=== PATIENT | male | born 1975 | race Caucasian/White ===

== ENCOUNTER 2024-11-13 20:42 | Emergency (ER) | payer OTHER, SELFPAY ==
[2024-11-13 20:42] VITALS: BMI 25.0
[2024-11-13 21:25] VITALS: BP 147/85; PULSE 83; RESP 24; TEMP 39.1; O2SAT 93
--- NOTE | 2024-11-13 21:37 | XR_ITS ---
Examination: PA chest single view TECHNIQUE: Upright PA chest single view Standing time: November 13, 2024 2146 hours INDICATIONS: Coughing chest pain today. FINDINGS: Pneumonia and atelectasis right base Mild prominence left ventricle No pulmonary edema Intact osseous structures IMPRESSION: Atelectasis and pneumonia right base
--- NOTE | 2024-11-13 21:37 | EKG_ITS ---
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1975 Requested By: Patrick Page Order Number: [id number] Reading MD: Patrick Page Measurements Intervals [place] Rate: 87 P: 70 IN: 140 QRS: 33 QRSD: 100 T: 41 QT: 338 QTc: 407 Interpretive Statements SINUS RHYTHM POSSIBLE LEFT ATRIAL ENLARGEMENT [-0.1mV P WAVE IN V1/V2] INCOMPLETE RIGHT BUNDLE BRANCH BLOCK [90+ ms QRS DURATION, TERMINAL R IN V1/V2, 40+ ms S IN I/aVL/V4/V5/V6] SEPTAL MYOCARDIAL INFARCTION , OF INDETERMINATE AGE [40+ ms Q WAVE IN V1/V2] Compared to ECG 03/21/2022 11:02:00 Incomplete right bundle-branch block now present Myocardial infarct finding now present /store/S0/[id number]/ecg/[id number].pdf
--- NOTE | 2024-11-13 21:38 | PD.EDRME ---
Rapid Medical Screening Exam [facility] Arrival date/time: 11/13/24 20:42 49M with no significant PMH presents to ED with 5 days of worsening cough, CP, and SOB. Patient tested positive for the flu and was put on Tamiflu. Patient was also given Augmentin by PCP. Chief Complaint: Flu Like Symptoms Time Seen by Provider: 11/14/24 00:39 Vital signs: Vital Signs Temperature 102.3 F H 11/13/24 21:25 Pulse Rate 83 11/13/24 21:25 Respiratory Rate 24 H 11/13/24 21:25 Blood Pressure 147/85 H 11/13/24 21:25 Pulse Oximetry (%) 93 L 11/13/24 21:25 Oxygen Delivery Method Room Air 11/13/24 21:25
[2024-11-13 21:59] LABS: Lactate (Lactic Acid) 1.3 mMol/L (0.4-2.0)
[2024-11-13 22:00] LABS: Basophils % (Auto) 0 % (0-2.5); Eosinophils % (Auto) 0 % (0-10); Hemoglobin 14.3 g/dL (13.5-16.0); Immature Granulocytes % (Auto) 1 % (0-0); Immature Granulocytes Auto 0.05 Thou/mm3 (0.00-0.00); Lymphocytes # (Auto) 0.7 Thou/mm3 (1.0-4.8); Lymphocytes % (Auto) 10 % (10-50); Mean Corpuscular HGB Conc 37.6 g/dl (31.0-37.0); Mean Corpuscular Hemoglobin 31.2 pg (25.0-35.0); Mean Corpuscular Volume 83 fL (80-100); Monocytes # (Auto) 0.6 Thou/mm3 (0.0-0.8); Monocytes % (Auto) 9 % (0-12); Neutrophils # (Auto) 5.4 Thou/mm3 (1.8-7.7); Neutrophils % (Auto) 79 % (37-80); Nucleated Red Blood Cell % 0 /100 WBC (0); Platelet Count 198 Thou/mm3 (140-440); RDW Standard Deviation 35.5 fL (35.1-43.9); Red Blood Count 4.58 Miln/mm3 (4.50-5.90); White Blood Count 6.8 Thou/mm3 (3.8-10.6)
[2024-11-13 22:18] LABS: B-Type Natriuretic Peptide < 20 pg/mL (0-100)
[2024-11-13 22:22] VITALS: TEMP 39.4
[2024-11-13] MEDS: IBUPROFEN TAB 400 MG TABLET 800 MG PO (22:22)
[2024-11-13 22:23] VITALS: TEMP 39.4
[2024-11-13] MEDS: ACETAMINOPHEN 500 MG TABLET 1000 MG PO (22:23)
[2024-11-13 22:26] LABS: Alanine Aminotransferase 47 U/L (10-49); Albumin, Serum 4.5 gm/dL (3.5-5.0); Albumin/Globulin Ratio 1.5 (1.2-2.2); Alkaline Phosphatase 61 U/L (46-116); Anion Gap 7 (7-16); Aspartate Amino Transferase 53 U/L (0-34); BUN/Creatinine Ratio 9 Ratio (12-20); Bilirubin,Total 0.7 mg/dL (0.3-1.2); Blood Urea Nitrogen 8 mg/dL (9-23); Calcium 8.4 mg/dL (8.3-10.6); Calcium (Corrected) 8.4 mg/dL (8.5-10.1); Carbon Dioxide 29.8 mMol/L (20.0-31.0); Chloride 90 mMol/L (98-107); Creatinine (Component) 0.9 mg/dL (0.6-1.3); Globulin 3.1 gm/dL (2.3-3.5); Glucose 118 mg/dL (74-106); Osmolality,Calculated 254 (275-295); Potassium 3.8 mMol/L (3.4-5.1); Procalcitonin 0.13 ng/ml (0.0-0.49); Sodium 127 mMol/L (136-145); Total Protein 7.6 gm/dL (5.7-8.2); Troponin I < 0.020 ng/mL (0.0-0.045); eGFR > 60 See Note
[2024-11-13 22:48] VITALS: PULSE 94; RESP 20; O2SAT 96
[2024-11-13] MEDS: ALBUTEROL/IPRATROPIUM (Duoneb) RT SOL 3 ML NEBU 6 ML INH (22:48)
[2024-11-13 23:20] VITALS: TEMP 36.8
--- NOTE | 2024-11-14 00:40 | PD.EDURI ---
Upper Respiratory Inf. RME/HPI General Chief Complaint: Flu Like Symptoms Stated Complaint: FLU + Time Seen by Provider: 11/14/24 00:39 Arrival date/time: 11/13/24 20:42 49M with history of seizures presents to ED with 1 week of worsening cough, CP, and SOB. Patient tested positive for the flu at the clinic and was put on Tamiflu. Patient was also given Augmentin by PCP. Limitations: no limitations RME / HPI RME / HPI Narrative: 11/13/24 20:42 Related Data Home Medications ?Medication ?Instructions ?Recorded ?Confirmed carbamazepine 200 mg 200 mg PO BID ##0 10/13/12 03/22/22 tablet,extended release,12 hr (Tegretol XR) multivitamin 1 tab PO QDAY 11/24/19 03/22/22 Prework Out And Creatine 03/21/22 Previous Rx's ?Medication ?Instructions ?Recorded cephalexin 500 mg capsule 500 mg PO BID #14 caps 03/22/22 hydrocodone 5 mg-acetaminophen 325 1 tab PO Q6H PRN pain #40 tabs 03/22/22 mg tablet albuterol sulfate 90 mcg/actuation 2 puff inhalation Q6H PRN 11/14/24 aerosol inhaler (Ventolin HFA) shortness of breath or wheezing #8.5 grams doxycycline hyclate 100 mg tablet 100 mg PO BID 5 days #10 tabs 11/14/24 Allergies Allergy/AdvReac Type Severity Reaction Status Date / Time corn Allergy Intermediate Anaphylaxis Verified 03/22/22 13:57 erythromycin base Allergy unknown - Verified 03/22/22 13:32 as a child Review of Systems Review of Systems Systems Reviewed: All systems reviewed, normal except as documented Constitutional Constitutional: Reports system reviewed and no additional complaints, except as documented, Denies fever(s) and Denies headache(s) ENT Ears, Nose, Mouth, and Throat: Denies disequilibrium and Denies headache(s) Cardiovascular Cardiovascular: Reports system reviewed and no additional complaints, except as documented, Reports as per HPI, Reports chest pain and Reports dyspnea Respiratory Respiratory: Reports system reviewed and no additional complaints, except as documented, Reports as per HPI, Reports cough and Reports dyspnea Gastrointestinal Gastrointestinal: Reports system reviewed and no additional complaints, except as documented, Denies abdominal pain, Denies nausea and Denies vomiting Neurologic Neurologic: Reports system reviewed and no additional complaints, except as documented, Denies confusion, Denies disequilibrium and Denies headache(s) Psychiatric Psychiatric: Denies confusion Past Medical History Past Medical History NEUROLOGIC: Positive Neurological Disorders, Seizures, Epilepsy and Guillain-Briggs Syndrome (2012) CARDIAC: Negative Cardiac Disorders or Congestive Heart Failure RESPIRATORY: Negative Chronic Obstructive Pulmonary Disease (COPD) GASTROINTESTINAL: Positive Gastrointestinal Disorders and Gall Bladder Disease (sludge) GENITOURINARY: Negative Genitourinary Disorders or Renal Disease MUSCULOSKELETAL: Positive Musculoskeletal Disorders ENDOCRINE: Negative Endocrine Disorders, Diabetes Mellitus Type 1, Diabetes Mellitus Type 2 or Hyperthyroidism HEMATOLOGIC: Negative Blood Disorders OTHER HISTORY: Positive Hospitalization (gal bladder and valley fever, seizure at 13) and Chicken Pox; Negative Autoimmune Disease, Shingles, Falls, Blood Transfusions, Blood Transfusion Reaction, Anesthesia Reactions or Cancer Family History FAMILY HISTORY: Positive Family Cancer (paternal grandfather colon, dad liver cancer); Negative Family Respiratory Disorders, Family Cardiac Disorders or Family Gastrointestinal Problems Social History SMOKING STATUS: Never smoker ED Exam General Limitations: Present no limitations General appearance: Present alert and in no apparent distress Head Head exam: Present atraumatic Eye Eye exam: Present normal appearance, PERRL and EOMI ENT ENT exam: Present normal exam, normal oropharynx and mucous membranes moist Neck Neck exam: Present normal inspection, full ROM and trachea midline Chest Chest inspection: Present normal inspection and symmetric chest wall rise Respiratory Respiratory exam: Present normal lung sounds bilaterally Cardiovascular Cardiovascular exam: Present regular rate, normal rhythm and normal heart sounds Abdominal Exam Abdominal exam: Present soft and normal bowel sounds Extremities Exam Extremities exam: Present normal inspection and full ROM Back Exam Back exam: Present normal inspection and full ROM Neurological Exam Neurological exam: Present alert, oriented X3 and CN II-XII intact Psychiatric Psychiatric exam: Present normal affect and normal mood Skin Skin exam: Present warm, dry, intact and normal color Course Quality Measures none Orders Category Date Time Status Bedside COVID-19 Antigen Test NOW Care 11/14/24 00:42 Active Bedside Influenza A&B Antigen Test NOW Care 11/14/24 00:42 Completed EKG (ED ONLY) *Do not use* NOW Care 11/13/24 21:37 Completed Insert IV NOW Care 11/14/24 00:41 Active EKG (ED Only) Stat Exams 11/13/24 21:37 Draft XR chest 1V portable Stat Exams 11/13/24 21:37 Completed B-Type Natriuretic Peptide Stat Lab 11/13/24 21:52 Completed CBC Stat Lab 11/13/24 21:52 Completed Comprehensive Metabolic Panel Stat Lab 11/13/24 21:52 Completed D-Dimer Stat Lab 11/14/24 00:41 Completed Drug Screen,Urine Stat Lab 11/14/24 04:42 Received Lactate (Lactic Acid) Stat Lab 11/13/24 21:52 Completed Procalcitonin Stat Lab 11/13/24 21:52 Completed Troponin I Stat Lab 11/13/24 21:52 Completed Urinalysis, C/S if Indicated Stat Lab 11/14/24 04:42 Completed Acetaminophen Tab [Tylenol ES Tab] Med 11/13/24 21:37 Discontinued 1,000 mg PO X1 ONE Albuterol/Ipratr Rt Renay [Duoneb Rt Renay] Med 11/13/24 21:37 Discontinued 6 ml INH X1 ONE Dexamethasone Inj [Decadron Inj] Med 11/14/24 01:51 Discontinued 10 mg IV X1 ONE Doxycycline Inj [Vibramycin Inj] 200 mg Med 11/14/24 01:53 Discontinued Sodium Chloride 0.9% 250 ml [Ns] 250 ml IV X1 Ibuprofen Tab [Motrin Tab] Med 11/13/24 21:37 Discontinued 800 mg PO X1 ONE Ondansetron Inj [Zofran Inj] Med 11/14/24 03:31 Discontinued 4 mg IV X1 ONE Sodium Chloride 0.9% 1000 ml [Ns] 1,000 ml Med 11/14/24 01:53 Discontinued IV 500 mls/hr Sodium Chloride 0.9% 1000 ml [Ns] 1,000 ml Med 11/14/24 00:41 Discontinued IV 999 mls/hr cefTRIAXone/D5w 1gm IV premix [Rocephin/D5w 1gm IV Med 11/14/24 01:51 Discontinued premix] 50 ml IV X1 Oxygen Delivery NOW RT 11/13/24 21:37 Active Vital Signs Vital signs: Vital Signs Temperature 102.3 F H 11/13/24 21:25 Pulse Rate 83 11/13/24 21:25 Respiratory Rate 24 H 11/13/24 21:25 Blood Pressure 147/85 H 11/13/24 21:25 Pulse Oximetry (%) 93 L 11/13/24 21:25 Oxygen Delivery Method Room Air 11/13/24 21:25 O2 at 93% on RA Upper Respiratory Infection MDM Narrative MDM Narrative:: 49M with history of seizures presents to ED with 1 week of worsening cough, CP, and SOB. Patient tested positive for the flu at the clinic and was put on Tamiflu. Patient was also given Augmentin by PCP. Physical exam reveals clear ENT and lungs. Increased WOB. Patient is febrile, but does not appear toxic. EKG is NSR. No leukocytosis. Moderately low sodium of 127 likely due to poor intake/hypovolemia (as patient could not make urine until 2 L NS and has had poor intake in the past few days) vs pulmonary disease vs carbamazepine side effect. Procal/lactate normal. CXR R base PNA and atelectasis. Trop/BNP normal. D-dimer normal. UA shows some dehydration. Significant improvement with IVF, ABX, breathing tx, and steroids. Will add doxycycline to Augmentin for atypical coverage. Patient data External records reviewed:: [facility] previous records Clinical information provided by:: patient Social determinants that could affect healthcare access:: none Patient has the following chronic illnesses:: seizures How is presenting disease/condition affected by chronic disease/condition?: uneffected by Evaluation data The following diagnostics were reviewed and interpreted by me:: lab results, radiology exam(s) and EKG tracing(s) Lab and/or radiology exams considered but not ordered:: ordered Interpretation Summary: above Medications / Prescriptions Medications or Prescriptions considered but not ordered:: ordered Medication administrations:: Medication Administration History Discontinued Medications Acetaminophen (Acetaminophen 500 Mg Tablet) 1,000 mg PO X1 ONE Stop: 11/13/24 21:38 Last Admin: 11/13/24 22:23 Dose: 1,000 mg Documented By: RIAN Albuterol/Ipratropium (Albuterol/Ipratropium (Duoneb) Rt Renay 3 Ml Nebu) 6 ml INH X1 ONE Stop: 11/13/24 21:38 Last Admin: 11/13/24 22:48 Dose: 6 ml Documented By: MERLINE Dexamethasone Sodium Phosphate (Dexamethasone Sod Phos Inj 10 Mg/Ml Vial) 10 mg IV X1 ONE Stop: 11/14/24 01:52 Last Admin: 11/14/24 02:19 Dose: 10 mg Documented By: RIAN Sodium Chloride (Ns) 1,000 mls @ 999 mls/hr IV .Q1H1M ONE Stop: 11/14/24 01:41 Last Infusion: 11/14/24 02:14 Dose: Infused Documented By: Admin: 11/14/24 01:00 Dose: 999 mls/hr Documented By: FRED Ceftriaxone Sodium/Dextrose (Rocephin/D5w 1gm Iv Premix) 50 mls @ 100 mls/hr IV X1 ONE Stop: 11/14/24 02:20 Last Infusion: 11/14/24 02:58 Dose: Infused Documented By: Admin: 11/14/24 02:20 Dose: 100 mls/hr Documented By: RIAN Sodium Chloride (Ns) 1,000 mls @ 500 mls/hr IV .Q2H ONE Stop: 11/14/24 03:52 Last Infusion: 11/14/24 04:14 Dose: Infused Documented By: Admin: 11/14/24 02:20 Dose: 500 mls/hr Documented By: RIAN Doxycycline Hyclate 200 mg/ (Sodium Chloride) 250 mls @ 125 mls/hr IV X1 ONE Stop: 11/14/24 03:52 Last Admin: 11/14/24 02:58 Dose: 125 mls/hr Documented By: RIAN Ibuprofen (Ibuprofen Tab 400 Mg Tablet) 800 mg PO X1 ONE Stop: 11/13/24 21:38 Last Admin: 11/13/24 22:22 Dose: 800 mg Documented By: RIAN Ondansetron HCl (Ondansetron Inj 2 Mg/Ml Inj 2 Ml) 4 mg IV X1 ONE; Protocol Stop: 11/14/24 03:32 Last Admin: 11/14/24 03:55 Dose: 4 mg Documented By: RIAN above Consultations Consultation(s) initiated? (list below): No Diagnosis Upper Respiratory Differential Diagnosis: upper respiratory infection, croup, otitis media, sinusitis, viral infection, bronchitis, influenza, pharyngitis and other (CAP, PE, dehydration, hyponatremia, atelectasis) Most likely diagnosis given after review of the tests above:: CAP and atelectasis Admission Indicated Admission indicated?: not indicated Admission Request Was there a request for admission?: No Disposition Plan Disposition Plan: Discharge Discharge Attestation Discharge Attestation: The patient and all family members were given an opportunity to ask questions and understood the discharge instructions. Discharge instructions specifically effects, indications for sooner follow up or return to the emergency department, and the expected course of current diagnosis. Patient condition: Stable Discharge Plan Plan Patient Disposition: HOME (Self Care) Disposition Comment: Stable Prescriptions/Referrals Prescriptions/Med Rec: New doxycycline hyclate 100 mg tablet 100 mg PO BID 5 Days Qty: 10 0RF albuterol sulfate [Ventolin HFA] 90 mcg/actuation HFA aerosol inhaler 2 puff inhalation Q6H PRN (Reason: shortness of breath or wheezing) Qty: 8.5 0RF Rx Instructions: w/ education please No Action carbamazepine [Tegretol XR] 200 MG tablet extended release 12 hr 200 mg PO BID Qty: 0 multivitamin Tablet 1 tab PO QDAY Prework Out And Creatine hydrocodone-acetaminophen 5-325 mg tablet 1 tab PO Q6H MDD 6 PRN (Reason: pain) Qty: 40 0RF cephalexin 500 mg capsule 500 mg PO BID Qty: 14 0RF Referrals: Kristen Benson MD [Primary Care Provider] - In 1 week Problem List Clinical Impression: CAP (community acquired pneumonia), Atelectasis Patient/Caregiver Discharge Instructions Education Materials: Using an Incentive Spirometer, ED Atelectasis, ED Pneumonia (Adult) Additional Instructions: Please follow-up with PCP within 24-48 hours and return immediately if symptoms worsen. Ibuprofen/Tylenol can be used simultaneously for greater fever/pain control. Benadryl is good for cough, congestion, and sleep. Finish Tamiflu and Augmentin. Finish new ABX as well. Use incentive spirometer and inhaler as needed. Print Language: [place] Stand Alone Forms: Patient Portal Info Letter PA/DRY CLIPPER TENDER Supervising Physician PA/DRY CLIPPER TENDER Supervising Physician: Dr. Lund
[2024-11-14 00:53] VITALS: BP 119/71; PULSE 76; RESP 22; TEMP 36.9; O2SAT 94
[2024-11-14] MEDS: SODIUM CHLORIDE 0.9% 1000 ML 1,000 ML 999 ML IV (01:00)
[2024-11-14 01:45] LABS: D-Dimer 499 ng/mL (<600)
[2024-11-14] MEDS: DEXAMETHASONE SOD PHOS INJ 10 MG/ML VIAL IV (02:19)
[2024-11-14] MEDS: cefTRIAXone/D5w 1gm IV premix 50 ML IV (02:20)
[2024-11-14] MEDS: SODIUM CHLORIDE 0.9% 1000 ML 1,000 ML 500 ML IV (02:20)
[2024-11-14 02:21] VITALS: TEMP 36.8
[2024-11-14] MEDS: DOXYCYCLINE INJ 200 MG in SODIUM CHLORIDE 0.9% 250 ML 250 ML 125 MG IV (02:58)
[2024-11-14 03:35] VITALS: BP 110/65; PULSE 75; RESP 22; TEMP 36.8
[2024-11-14 03:48] VITALS: O2SAT 95
[2024-11-14] MEDS: ONDANSETRON INJ 2 MG/ML INJ 2 ML 4 MG IV (03:55)
[2024-11-14 04:50] LABS: Collection Type, Urine Clean Catch
[2024-11-14 05:11] LABS: Bilirubin,Urine Negative (Negative); Blood,Urine Negative (Negative); Clarity,Urine Clear (Clear/Hazy); Color,Urine Yellow (Lt Yel-Yel); Culture Indicated,Urine Not Indicated; Glucose, Urine Negative (Negative); Ketones,Urine Trace (Negative); Leukocyte Esterase,Urine Negative (Negative); Nitrite,Urine Negative (Negative); PH,Urine 6.5 (5.0-7.0); Protein,Urine 1+ (Neg - Trace); RBC,Urine 1 /hpf (0-3); Specific Gravity,Urine 1.021 (1.001-1.035); Squamous Epithelial Cell,Urine < 1 /hpf (0-5); Urobilinogen,Urine Negative mg/dL (0.0-1.0); WBC,Urine 4 /hpf (0-5)
[2024-11-14 05:18] LABS: Amphetamine/Methamp Scrn,U Negative (Negative); Barbiturate Screen,Urine Negative (Negative); Benzodiazepines Screen,Urine Negative (Negative); Benzoylecgonine Screen, Ur Negative (Negative); Fentanyl Screen,Urine Negative (Negative); Opiate Screen,Urine Negative (Negative); THC Screen,Urine Negative (Negative)
[2024-11-14 05:30] VITALS: BP 119/71; PULSE 73; RESP 18; TEMP 36.7; O2SAT 94
== END 2024-11-14 05:33 | disposition home or self-care (01) ==
PROVIDERS: Physician Assistant; Emergency Provider Emergency Medicine; PCP Internal Medicine
DX: J18.9 Pneumonia, unspecified organism (principal); J98.11 Atelectasis
CPT/HCPCS: 36415; 71045; 80053; 80307; 81001; 83605; 83880; 84145; 84484; 85025; 85379; 87400; 87811; 93005; 94640; 96361; 96365; 96375; 99284; A9270; J0696; J1100; J2405; J3490; J7030; J7050

== ENCOUNTER → 2024-12-16 | Outpatient (CLI) | payer OTHER, SELFPAY ==
--- NOTE | 2024-12-16 09:28 | XR_ITS ---
Examination: PA lateral chest 2 views TECHNIQUE: Upright AP lateral chest 2 views Exam date and time: December 16, 2024 10:26 AM INDICATIONS: Pneumonia right base on chest film November 13, 2024 FINDINGS: Pneumonia has cleared at the right base Normal heart size The osseous structures are intact IMPRESSION: No active disease
--- NOTE | 2024-12-16 10:00 | XR_ITS ---
Examination: Abdomen sonogram, complete Date and time of exam: December 16, 2024 0949 hours INDICATIONS: Lower abdominal pain beginning 5 years ago. Technique: Multiple real-time grayscale transabdominal sonographic images of the abdomen have been obtained. Findings: Gallbladder sludge Negative for gallstones Normal gallbladder wall Common bile duct 0.4 cm Pancreatic head is prominent 3.6 cm Aorta not enlarged Liver 15.2 cm no liver lesions Normal hepatopedal portal venous flow Patent IVC Right kidney 12.5 x 7.3 x 5.3 cm renal cortex 1.6 cm Left kidney 12.1 x 6.9 x 5.1 cm renal cortex 2.3 cm Moderate bilateral renal cortical scar formation Spleen 8.9 cm IMPRESSION: Gallbladder sludge Prominent pancreatic head, consider CT scan abdomen pelvis post intravenous contrast follow-up Moderate bilateral renal parenchymal scar formation
[2024-12-16 11:32] LABS: Basophils # (Auto) 0.1 Thou/mm3 (0.0-0.2); Basophils % (Auto) 1 % (0-2.5); Eosinophils # (Auto) 0.3 Thou/mm3 (0.0-0.5); Eosinophils % (Auto) 4 % (0-10); Hematocrit 43.5 % (41.0-53.0); Hemoglobin 15.5 g/dL (13.5-16.0); Immature Granulocytes % (Auto) 1 % (0-0); Immature Granulocytes Auto 0.06 Thou/mm3 (0.00-0.00); Lymphocytes # (Auto) 1.8 Thou/mm3 (1.0-4.8); Lymphocytes % (Auto) 27 % (10-50); Mean Corpuscular HGB Conc 35.6 g/dl (31.0-37.0); Mean Corpuscular Hemoglobin 30.7 pg (25.0-35.0); Mean Corpuscular Volume 86 fL (80-100); Monocytes # (Auto) 0.8 Thou/mm3 (0.0-0.8); Monocytes % (Auto) 13 % (0-12); Neutrophils # (Auto) 3.6 Thou/mm3 (1.8-7.7); Neutrophils % (Auto) 55 % (37-80); Nucleated Red Blood Cell % 0 /100 WBC (0); Platelet Count 258 Thou/mm3 (140-440); RDW Standard Deviation 41.1 fL (35.1-43.9); Red Blood Count 5.05 Miln/mm3 (4.50-5.90); White Blood Count 6.6 Thou/mm3 (3.8-10.6)
[2024-12-16 12:10] LABS: T4 (Thyroxine) 5.3 mcg/dL (4.5-10.9)
[2024-12-16 12:13] LABS: Alanine Aminotransferase 29 U/L (10-49); Albumin, Serum 4.5 gm/dL (3.5-5.0); Albumin/Globulin Ratio 1.6 (1.2-2.2); Alkaline Phosphatase 91 U/L (46-116); Anion Gap 5 (7-16); Aspartate Amino Transferase 20 U/L (0-34); BUN/Creatinine Ratio 10 Ratio (12-20); Bilirubin,Total 0.6 mg/dL (0.3-1.2); Blood Urea Nitrogen 8 mg/dL (9-23); Calcium 9.4 mg/dL (8.3-10.6); Calcium (Corrected) 9.4 mg/dL (8.5-10.1); Carbon Dioxide 30.7 mMol/L (20.0-31.0); Cardiac Risk Estimate 5.4 RATIO (4.0-6.7); Chloride 103 mMol/L (98-107); Cholesterol 211 mg/dL (132-200); Creatinine (Component) 0.8 mg/dL (0.6-1.3); Globulin 2.9 gm/dL (2.3-3.5); Glucose 100 mg/dL (74-106); HDL Cholesterol 39 mg/dL (40-60); LDL Cholesterol,Calculated 137 mg/dL (0-130); Osmolality,Calculated 275 (275-295); Potassium 5.1 mMol/L (3.4-5.1); Sodium 139 mMol/L (136-145); Thyroid Stimulating Hormone 1.28 uIU/mL (0.55-4.78); Total Protein 7.4 gm/dL (5.7-8.2); Triglycerides 176 mg/dL (30-150); eGFR > 60 See Note
== END | disposition home or self-care (01) ==
LOC: CDIM 09:27 → COPL 10:59
PROVIDERS: PCP Internal Medicine; Referring Provider Internal Medicine; Visit Provider Internal Medicine
DX: Z09 Encounter for follow-up examination after completed treatment for conditions other than malignant neoplasm (principal); E78.2 Mixed hyperlipidemia; K82.8 Other specified diseases of gallbladder; N28.89 Other specified disorders of kidney and ureter; Z87.01 Personal history of pneumonia (recurrent)
CPT/HCPCS: 36415; 71046; 76700; 80053; 80061; 81001; 84436; 84443; 85025

== ENCOUNTER → 2024-12-22 | Outpatient (CLI) | payer OTHER, SELFPAY ==
[2024-12-22 09:37] LABS: Collection Type, Urine Clean Catch; RBC,Urine 0 /hpf (0-3)
[2024-12-22 10:51] LABS: Bilirubin,Urine Negative (Negative); Blood,Urine Negative (Negative); Clarity,Urine Clear (Clear/Hazy); Color,Urine Yellow (Lt Yel-Yel); Culture Indicated,Urine Not Indicated; Glucose, Urine Negative (Negative); Ketones,Urine Negative (Negative); Leukocyte Esterase,Urine Negative (Negative); Nitrite,Urine Negative (Negative); PH,Urine 5.5 (5.0-7.0); Protein,Urine Trace (Neg - Trace); Specific Gravity,Urine 1.038 (1.001-1.035); Squamous Epithelial Cell,Urine 1 /hpf (0-5); Urobilinogen,Urine Negative mg/dL (0.0-1.0); WBC,Urine < 1 /hpf (0-5)
== END | disposition home or self-care (01) ==
LOC: SLDO 09:25
PROVIDERS: PCP Internal Medicine; Referring Provider Internal Medicine; Visit Provider Internal Medicine
DX: E78.2 Mixed hyperlipidemia (principal)
CPT/HCPCS: 81001

== ENCOUNTER → 2025-02-23 | Outpatient (CLI) | payer OTHER, SELFPAY ==
--- NOTE | 2025-02-23 15:00 | XR_ITS ---
Examination: CT abdomen, without intravenous contrast. CT abdomen, with intravenous contrast. Sagittal and coronal 2-D reconstructions. Time of exam:February 23, 2025 1533 hours Comparison October 12, 2012 INDICATIONS: Right upper abdominal pain beginning 2 months ago, diagnosis pancreatic disease CTDI: vol (mGy) 16.7 DLP: (mGycm) 548 Technique: Multiple 3.0 mm axial noncontrast images of the abdomen have been obtained. Multiple 3.0 mm axial images post administration 60 cc [id number] intravenous contrast have been obtained. Sagittal and coronal 3-D reconstructions have been obtained. Low dose protocols were performed. One or more of the following dose reduction techniques were used; automated exposure control, adjustment of the mA and/or KV according to patient size, use of iterative reconstruction technique. Findings: No focal liver or splenic lesion No gallstones No pancreatic or adrenal mass No renal or ureteral calculi, moderate renal parenchymal scar formation Aorta normal size No bowel obstruction Normal appendix IMPRESSION: No pancreatic mass or peripancreatic edema
== END | disposition home or self-care (01) ==
PROVIDERS: PCP Internal Medicine; Referring Provider Internal Medicine; Visit Provider Internal Medicine
DX: K86.9 Disease of pancreas, unspecified (principal)
CPT/HCPCS: 74170; A4649; Q9967

== ENCOUNTER → 2025-05-04 | Outpatient (CLI) | payer OTHER, SELFPAY ==
--- NOTE | 2025-05-04 | XR_ITS ---
Examination: Sinus series 3 views TECHNIQUE: Fernando Serrano lateral sinus series 3 views Date and time: May 04, 2025 1312 hours INDICATIONS: Sinus pressure and pain years, sinus surgery 1.5 years ago. FINDINGS: Mild opacity in the frontal ethmoid air cells and right maxillary antrum No fluid levels No retention cysts IMPRESSION: Mild frontal ethmoid and right maxillary antral chronic sinusitis
== END | disposition home or self-care (01) ==
LOC: CDIM 12:17
PROVIDERS: PCP Internal Medicine; Referring Provider Internal Medicine; Visit Provider Internal Medicine
DX: J32.2 Chronic ethmoidal sinusitis (principal); J32.0 Chronic maxillary sinusitis
CPT/HCPCS: 70220

== ENCOUNTER → 2025-06-09 | Outpatient (CLI) | payer OTHER, SELFPAY ==
--- NOTE | 2025-06-09 10:18 | XR_ITS ---
EXAMINATION: Cervical spine, 5 views Technique: Cervical spine AP, AP odontoid, lateral, bilateral obliques, 5 views Exam date and time: June 09, 2025, 1028 hrs. Indications: Neck pain beginning one month ago. Findings: Satisfactory alignment cervical vertebral bodies No cervical fracture No significant cervical disc narrowing No neural foraminal stenosis Impression: No cervical fracture or significant arthritic change.
== END | disposition home or self-care (01) ==
PROVIDERS: PCP Internal Medicine; Referring Provider Internal Medicine; Visit Provider Internal Medicine
DX: M54.2 Cervicalgia (principal)
CPT/HCPCS: 72050

== ENCOUNTER → 2025-06-16 | Outpatient (CLI) | payer OTHER, SELFPAY ==
--- NOTE | 2025-06-16 17:10 | XR_ITS ---
Examination: CT maxillofacial, without intravenous contrast. 2-D sagittal reconstructions. 3-D reconstructions. Date and time of exam:June 16, 2025 1728 hrs., Comparison January 10, 2022 Indications: Sinus pressure and pain beginning 10 years ago. CTDI: vol (mGy):17 DLP: (mGycm):259 Technique: Multiple axial images of maxillofacial region, 3.0 mm slice thickness. 2-D sagittal and coronal reconstructions. 3-D reconstructions. Low dose protocols were performed. One or more of the following dose reduction techniques were used; automated exposure control, adjustment of the mA and/or KV according to patient size, use of iterative reconstruction technique. Findings: Mild to moderate chronic mucosal disease in the ethmoid air cells Occlusion of the right ostiomeatal complex with 11 mm retention cyst upper medial right maxillary antrum and 10 mm retention cyst upper right maxillary antrum Mucosal disease at the 6 mm in the left maxillary antrum with fluid in the left maxillary antrum No cortical bone erosion Impression: Significant chronic ethmoid maxillary sinusitis Acute left maxillary sinusitis.
== END | disposition home or self-care (01) ==
PROVIDERS: PCP Internal Medicine; Referring Provider Internal Medicine; Visit Provider Internal Medicine
DX: J32.8 Other chronic sinusitis (principal); J01.00 Acute maxillary sinusitis, unspecified
CPT/HCPCS: 70486